=== PATIENT | female | born 1965 | race Caucasian/White ===

== ENCOUNTER 2017-09-20 05:22 | Emergency (ER) | payer OTHER ==
[~2017-09-20] VITALS: Ht 167.6 cm; Wt 122.7 kg
[~2017-09-20 05:22] MED LIST: CLIN1CAP5 PO; FIORINAL2 PO; OXYC1TAB13 PO; SMZ-800T
[2017-09-20 05:28] VITALS: BP 174/101; PULSE 82; RESP 20; TEMP 98; O2SAT 98
[2017-09-20 05:39] VITALS: BP 174/101; PULSE 82; RESP 18; TEMP 98
--- NOTE | 2017-09-20 05:41 | PD ---
HPI Chief Complaint: facial swelling Time Seen by Provider: 05:40 Travel History International Travel<30 days: No Contact w/Intl Traveler<30days: No Traveled to known affect area: No History of Present Illness HPI 52-year-old female came to the emergency room with history of intense nasal and adjacent left cheek swelling and pain. Patient says that this has been going on for 3 days. She called [facility] and was prescribed Bactrim, Bactroban ointment for the nose and Medrol Dosepak. However patient says last night she was unable to sleep because of the pain. As per her is started off as a small sore inside her left nostril. Now her entire nose especially the left nostril is very tender to touch and the side of the nose and the left cheek is swollen. No history of fever or chills. Vital signs were relatively stable. [facility] Past Medical History Narrative Medical List of her past medical, surgical, social and family history is reviewed from the nursing note. Cancer: No Diabetes: No Glaucoma: No Hepatitis: No Hiatal Hernia: No Hypertension: No Thyroid Disease: Yes Past Surgical History Gynecologic Surgery: Yes (TUBAL LIGATION) Hysterectomy: Yes Other Surgery: Yes Social History Alcohol Use: Yes (RARE) Tobacco Use: No Substance Use: No Allergies-Medications (Allergen,Severity, Reaction): Coded Allergies: No Known Allergies (Verified Allergy, Unknown, 09/20/17) Comments No known drug allergies. Reported Meds & Prescriptions Reported Meds & Active Scripts Active Ibuprofen 800 Mg Tab 800 Mg PO Q6HR PRN Tramadol (Tramadol HCl) 50 Mg Tab 50 Mg PO Q6H PRN Clindamycin (Clindamycin HCl) 300 Mg Cap 300 Mg PO Q8HR 10 Days Reported Topamax (Topiramate) 100 Mg Tab 100 Mg PO HS Phentermine (Phentermine HCl) 37.5 Mg Cap 37.5 Mg PO DAILY Levothyroxine (Levothyroxine Sodium) 100 Mcg Tab 100 Mcg PO DAILY Fiorinal (Butalbital/Aspirin/Caffeine) 50-325-40 Mg Cap 1 Cap PO Q6HR PRN Do not exceed 6 capsules/day. Mupirocin Topical (Mupirocin) 2 % Oint 1 Applic TOPICAL BID Methylprednisolone Dosepak (Methylprednisolone) 4 Dspk 4 Mg PO DIRECTED Per Pharmacist Direction Sulfamethoxazole-Trimethoprim 800-160 Mg Tab 1 Tab PO BID Narrative Medication List of her home medications reviewed from the nursing note. Review of Systems Except as stated in HPI: all other systems reviewed are Neg HENT: Positive: Other (facial swelling and pain) Physical Exam Narrative GENERAL: Awake, alert, obese, moderate distress SKIN: Focused skin assessment warm/dry. HEAD: Atraumatic. Normocephalic. EYES: Pupils equal and round. No scleral icterus. No injection or drainage. ENT: No nasal bleeding or discharge. Mucous membranes pink and moist. The tip of the nose is tender to touch along with the lateral and lateral of the left nostril. There is some redness and swelling as well NECK: Trachea midline. No JVD. CARDIOVASCULAR: Regular rate and rhythm. No murmur appreciated. RESPIRATORY: No accessory muscle use. Clear to auscultation. Breath sounds equal bilaterally. GASTROINTESTINAL: Abdomen soft, non-tender, nondistended. Hepatic and splenic margins not palpable. MUSCULOSKELETAL: No obvious deformities. No clubbing. No cyanosis. No edema. NEUROLOGICAL: Awake and alert. No obvious cranial nerve deficits. Motor grossly within normal limits. Normal speech. PSYCHIATRIC: Appropriate mood and affect; insight and judgment normal. Data Data Last Documented VS Orders Orders Basic Metabolic Panel (Bmp) (09/20/17 05:47) Complete Blood Count With Diff (09/20/17 05:47) Blood Culture (09/20/17 05:47) Wound Culture And Gram Stain (09/20/17 05:47) Ketorolac Inj (Toradol Inj) (09/20/17 06:00) Ct Facial Bones W Iv Contrast (09/20/17 ) Clindamycin Inj (Cleocin Inj) (09/20/17 06:15) Iohexol 350 Inj (Omnipaque 350 Inj) (09/20/17 07:13) Ed Discharge Order (09/20/17 08:45) Labs Laboratory Tests Test 09/20/17 06:00 White Blood Count 8.2 TH/MM3 Red Blood Count 4.21 MIL/MM3 Hemoglobin 13.5 GM/DL Hematocrit 41.0 % Mean Corpuscular Volume 97.4 FL Mean Corpuscular Hemoglobin 32.0 PG Mean Corpuscular Hemoglobin Concent 32.9 % Red Cell Distribution Width 13.4 % Platelet Count 310 TH/MM3 Mean Platelet Volume 8.5 FL Neutrophils (%) (Auto) 73.3 % Lymphocytes (%) (Auto) 18.9 % Monocytes (%) (Auto) 4.9 % Eosinophils (%) (Auto) 2.1 % Basophils (%) (Auto) 0.8 % Neutrophils # (Auto) 5.9 TH/MM3 Lymphocytes # (Auto) 1.6 TH/MM3 Monocytes # (Auto) 0.4 TH/MM3 Eosinophils # (Auto) 0.2 TH/MM3 Basophils # (Auto) 0.1 TH/MM3 CBC Comment DIFF FINAL Differential Comment Blood Urea Nitrogen 11 MG/DL Creatinine 1.10 MG/DL Random Glucose 102 MG/DL Calcium Level 8.5 MG/DL Sodium Level 138 MEQ/L Potassium Level 3.8 MEQ/L Chloride Level 107 MEQ/L Carbon Dioxide Level 21.5 MEQ/L Anion Gap 10 MEQ/L Estimat Glomerular Filtration Rate 52 ML/MIN MDM Medical Decision Making Medical Screen Exam Complete: Yes Emergency Medical Condition: Yes Medical Record Reviewed: Yes Differential Diagnosis Nasal cellulitis, abscess, Narrative Course 6:20 AM awaiting for the blood test result. Patient is medicated for pain and IV clindamycin has been ordered. I've ordered CT scan of her face with contrast. Awaiting for the scan to be done and resulted. 6:43 AM blood test results of back and within acceptable limit. Awaiting for the CAT scan to be done and resulted. Case will be signed out to the oncoming ER physician. Procedures EKG Prior to Arrival: No Scripts Clindamycin (Clindamycin) 300 Mg Cap 300 MG PO Q8HR for Infection for 10 Days, CAP 0 Refills Prov: Gaviota Bermeo MD 09/20/17 Chanel Church MD Sep 20, 2017 05:41
[2017-09-20] MEDS ORDERED: SULF1TAB23 PO (05:50)
[2017-09-20] MEDS ORDERED: FIORINAL2 PO (05:50)
[2017-09-20] MEDS ORDERED: MUPI2OIN TOPICAL (05:50)
[2017-09-20] MEDS ORDERED: METH4PAK PO (05:50)
[2017-09-20] MEDS ORDERED: KETOROLAC TROMETHAMINE 30 MG/ML (IVP) VIAL IVP ONE (06:00)
[2017-09-20] MEDS ORDERED: CLINDAMYCIN INJ 600 MG in SODIUM CHLORIDE 0.9% INJ 100 ML IV ONE (06:00)
[2017-09-20] MEDS ORDERED: CLINDAMYCIN INJ 600 MG in SODIUM CHLORIDE 0.9% INJ 50 ML IV ONE (06:00)
[2017-09-20] MEDS ORDERED: CLINDAMYCIN INJ 600 MG in SODIUM CHLORIDE 0.9% INJ 46 ML IV ONE (06:15)
[2017-09-20 06:18] VITALS: BP 142/85; PULSE 70; RESP 18; O2SAT 97
[2017-09-20 06:19] LABS: AUTOMATED NEUTROPHIL # 5.9 TH/MM3 (1.8-7.7); BASOPHIL # 0.1 TH/MM3 (0-0.2); BASOPHIL % 0.8 % (0.0-2.0); EOSINOPHIL # 0.2 TH/MM3 (0-0.4); EOSINOPHIL % 2.1 % (0.0-4.0); HEMO FLAGS DIFF FINAL; LYMPH % 18.9 % (9.0-44.0); LYMPHOCYTE # 1.6 TH/MM3 (1.0-4.8); MEAN CELL VOLUME 97.4 FL (80.0-100.0); MEAN CORPUSCULAR HGB CONC 32.9 % (32.0-36.0); MONO % 4.9 % (0.0-8.0); NEUT % 73.3 % (16.0-70.0); PLATELET COUNT 310 TH/MM3 (150-450); RED BLOOD COUNT 4.21 MIL/MM3 (4.00-5.30); RED CELL DISTRIBUTION WIDTH 13.4 % (11.6-17.2); WHITE BLOOD COUNT 8.2 TH/MM3 (4.0-11.0)
[2017-09-20 06:35] LABS: POTASSIUM 3.8 MEQ/L (3.5-5.1)
[2017-09-20 06:38] LABS: BICARBONATE 21.5 MEQ/L (21.0-32.0)
[2017-09-20] MEDS ORDERED: IOHEXOL 350 MG/ML 10 ML VIAL (for RAD DIAG) IVCONTRAST ONE (07:13)
--- NOTE | 2017-09-20 07:19 | RADRPT ---
EXAM DATE/TIME: 09/20/2017 06:55 [facility] COMPARISON: No previous studies available for comparison. INDICATIONS : Nasal swelling. Left facial pain. IV CONTRAST: 100 cc Omnipaque 350 (iohexol) IV RADIATION DOSE: 27.31 CTDIvol (mGy) ; Patient motion MEDICAL HISTORY : None SURGICAL HISTORY : Tubal ligation. ENCOUNTER: Initial ACUITY: 2 days PAIN SCALE: 8/10 LOCATION: Left facial TECHNIQUE: Volumetric scanning of the facial bones was performed. Using automated exposure control and adjustme nt of the mA and/or kV according to patient size, radiation dose was kept as low as reasonably achiev able to obtain optimal diagnostic quality images. DICOM format image data is available electronicall y for review and comparison. FINDINGS: ORBITS: The orbital and infraorbital osseous structures are intact. The retroconal structures have a normal configuration. No radiopaque foreign bodies are seen. NASAL BONE: The nasal bone and maxillary spine are intact ZYGOMATIC ARCHES: Symmetric without evidence of fracture. SINUSES: The maxillary, ethmoid and frontal sinuses are intact. No air-fluid levels seen. NASAL CAVITY: Mild nasal septal deviation to the right. The middle and inferior turbinates are within normal limits . SOFT TISSUES: No radiopaque foreign bodies seen. No soft-tissue swelling is seen. INTRACRANIAL: No intracranial air seen. CRIBIFORM PLATE: Grossly intact. CONCLUSION: Unremarkable examination. Delvin Rangel MD on September 20, 2017 at 7:15 Board Certified Radiologist. This report was verified electronically.
[2017-09-20] MEDS ORDERED: CLIN300C5 PO (08:45)
--- NOTE | 2017-09-20 08:45 | PD ---
Physical Exam Narrative GENERAL: Well-nourished, well-developed patient. SKIN: Warm and dry. There is redness noted to the left nare HEAD: Normocephalic and atraumatic. EYES: No injection or drainage. ENT: No nasal drainage noted. No abscess noted NECK: Supple, trachea midline. CARDIOVASCULAR: Regular rate and rhythm RESPIRATORY: No increased effort. No accessory muscle use. NEUROLOGICAL: Awake and alert. Motor and sensory grossly within normal limits. Normal speech. Data Data Last Documented VS Vital Signs Date Time Temp Pulse Resp B/P (MAP) Pulse Ox O2 Delivery O2 Flow Rate FiO2 09/20/17 09:03 83 18 135/79 (97) 100 09/20/17 06:18 Room Air 09/20/17 05:39 98.0 Orders Orders Basic Metabolic Panel (Bmp) (09/20/17 05:47) Complete Blood Count With Diff (09/20/17 05:47) Blood Culture (09/20/17 05:47) Wound Culture And Gram Stain (09/20/17 05:47) Ketorolac Inj (Toradol Inj) (09/20/17 06:00) Ct Facial Bones W Iv Contrast (09/20/17 ) Clindamycin Inj (Cleocin Inj) (09/20/17 06:15) Iohexol 350 Inj (Omnipaque 350 Inj) (09/20/17 07:13) Ed Discharge Order (09/20/17 08:45) Labs Laboratory Tests Test 09/20/17 06:00 White Blood Count 8.2 TH/MM3 Red Blood Count 4.21 MIL/MM3 Hemoglobin 13.5 GM/DL Hematocrit 41.0 % Mean Corpuscular Volume 97.4 FL Mean Corpuscular Hemoglobin 32.0 PG Mean Corpuscular Hemoglobin Concent 32.9 % Red Cell Distribution Width 13.4 % Platelet Count 310 TH/MM3 Mean Platelet Volume 8.5 FL Neutrophils (%) (Auto) 73.3 % Lymphocytes (%) (Auto) 18.9 % Monocytes (%) (Auto) 4.9 % Eosinophils (%) (Auto) 2.1 % Basophils (%) (Auto) 0.8 % Neutrophils # (Auto) 5.9 TH/MM3 Lymphocytes # (Auto) 1.6 TH/MM3 Monocytes # (Auto) 0.4 TH/MM3 Eosinophils # (Auto) 0.2 TH/MM3 Basophils # (Auto) 0.1 TH/MM3 CBC Comment DIFF FINAL Differential Comment Blood Urea Nitrogen 11 MG/DL Creatinine 1.10 MG/DL Random Glucose 102 MG/DL Calcium Level 8.5 MG/DL Sodium Level 138 MEQ/L Potassium Level 3.8 MEQ/L Chloride Level 107 MEQ/L Carbon Dioxide Level 21.5 MEQ/L Anion Gap 10 MEQ/L Estimat Glomerular Filtration Rate 52 ML/MIN MDM Supervised Visit with TAMIKO: No Interpretation(s) Last [address] 09/20/17 0000 Signed Impressions: Service Date/Time: Wednesday, September 20, 2017 06:55 - CONCLUSION: Unremarkable examination. Delvin Rangel MD Narrative Course Signed over to me to follow CT and reevaluate. Lab work is within normal limits , vital signs are stable. CT without progression of disease. Offered patient observation in the hospital with IV antibiotics and monitoring of her symptoms that she is wanting to go home and therefore we will provide her with antibiotic prescription for clindamycin and have her follow with her primary doctor tomorrow for recheck. Given strict return precautions and understands the importance of them given the area of cellulitis on her face. I explained with her how it could spread to her brain or one of the blood vessels in her brain could clot from this and she understands why this is important. Diagnosis Primary Impression: Nose cellulitis Patient Instructions: General Instructions Additional Instruction: Return with any headache, fever, vomiting, increased redness or other concern, continue Bactrim, follow with primary tomorrow Med/Other Pt SpecificInfo: Prescription(s) given Scripts Clindamycin (Clindamycin) 300 Mg Cap 300 MG PO Q8HR for Infection for 10 Days, CAP 0 Refills Prov: Gaviota Bermeo MD 09/20/17 Disposition: 01 DISCHARGE HOME Condition: Stable Gaviota Bermeo MD Sep 20, 2017 08:45
[2017-09-20 09:03] VITALS: BP 135/79
[2017-09-20] MEDS ORDERED: PHEN37.54 PO (21:00)
[2017-09-20] MEDS ORDERED: TOPI100 PO (21:00)
[2017-09-20] MEDS ORDERED: LEVO100T5 PO (21:00)
[2017-09-21] MEDS ORDERED: TRAM50TA PO (00:14)
[2017-09-21] MEDS ORDERED: IBUP1TAB7 PO (00:14)
== END 2017-09-20 09:05 | disposition home or self-care (01) ==
LOC: PHED 05:22
DX: J34.0 Abscess, furuncle and carbuncle of nose (principal); B96.7 Clostridium perfringens [C. perfringens] as the cause of diseases classified elsewhere
CPT/HCPCS: 70487; 80048; 85025; 87040; 87070; 87185; 96365; 96375; 99285; J1885; Q9967; 87205

== ENCOUNTER 2017-09-20 20:32 | Emergency (ER) | payer OTHER ==
[~2017-09-20] VITALS: Ht 167.6 cm; Wt 124.1 kg
[~2017-09-20 20:32] MED LIST changes: +CLIN300C5 PO; +METH4PAK PO; +MUPI2OIN TOPICAL; +SULF1TAB23 PO
[2017-09-20 20:34] VITALS: BP 163/94; PULSE 82; RESP 18; TEMP 98.1; O2SAT 97
[2017-09-20] MEDS ORDERED: TOPI100 PO (21:00)
[2017-09-20] MEDS ORDERED: PHEN37.54 PO (21:00)
[2017-09-20] MEDS ORDERED: LEVO100T5 PO (21:00)
--- NOTE | 2017-09-20 21:25 | PD ---
HPI Chief Complaint: ENT Complaint Time Seen by Provider: 20:54 Travel History International Travel<30 days: No Contact w/Intl Traveler<30days: No Traveled to known affect area: No History of Present Illness HPI Patient is a 52-year-old female who was in the ER earlier today seen by Dr. Smith for a possible infection in her nose that could be spreading towards facial cellulitis. Patient went to a urgent care was put on Bactrim and prednisone it did not improve so she came to our ER this morning. She does not have diabetes high blood pressure. She has no visual changes. She says she noticed a small ulcer on the left Mejia and shortness on the lateral aspect. In the ER today patient had a CAT scan that did not show any significant facial cellulitis there was mild inflammation of the left nare. PFSH Past Medical History Cancer: No Diabetes: No Diminished Hearing: No Glaucoma: No Hepatitis: No Hiatal Hernia: No Hypertension: No Immunizations Current: No Thyroid Disease: Yes Tetanus Vaccination: Unknown Influenza Vaccination: No ?: Not Menopausal: Yes : 2 Para: 2 Past Surgical History Eye Surgery: Yes (STAPES IMPLANT-TITANIUM) Gynecologic Surgery: Yes (TUBAL LIGATION) Hysterectomy: Yes Other Surgery: Yes Social History Alcohol Use: Yes (RARE) Tobacco Use: No Substance Use: No Allergies-Medications (Allergen,Severity, Reaction): Coded Allergies: No Known Allergies (Verified Allergy, Unknown, 09/20/17) Reported Meds & Prescriptions Reported Meds & Active Scripts Active Ibuprofen 800 Mg Tab 800 Mg PO Q6HR PRN Tramadol (Tramadol HCl) 50 Mg Tab 50 Mg PO Q6H PRN Clindamycin (Clindamycin HCl) 300 Mg Cap 300 Mg PO Q8HR 10 Days Reported Topamax (Topiramate) 100 Mg Tab 100 Mg PO HS Phentermine (Phentermine HCl) 37.5 Mg Cap 37.5 Mg PO DAILY Levothyroxine (Levothyroxine Sodium) 100 Mcg Tab 100 Mcg PO DAILY Fiorinal (Butalbital/Aspirin/Caffeine) 50-325-40 Mg Cap 1 Cap PO Q6HR PRN Do not exceed 6 capsules/day. Mupirocin Topical (Mupirocin) 2 % Oint 1 Applic TOPICAL BID Methylprednisolone Dosepak (Methylprednisolone) 4 Dspk 4 Mg PO DIRECTED Per Pharmacist Direction Sulfamethoxazole-Trimethoprim 800-160 Mg Tab 1 Tab PO BID Review of Systems Except as stated in HPI: all other systems reviewed are Neg HENT: Positive: Other (and in her left neck area lateral aspect of the introitus of her left naris as well as some what going up the side of her nasal fold) Physical Exam Narrative GENERAL: Nontoxic-appearing afebrile awake alert SKIN: Warm and dry. HEAD: Atraumatic. Normocephalic. Face has no periorbital cellulitis no redness around her orbits. EYES: Pupils equal and round. No scleral icterus. No injection or drainage. Full range of motion bilaterally ENT: No nasal bleeding or discharge. Mucous membranes pink and moist. Inside her left naris there is a small tiny erosion on the lateral aspect of the introitus of the left nostril 3 mm NECK: Trachea midline. No JVD. CARDIOVASCULAR: Regular rate and rhythm. RESPIRATORY: No accessory muscle use. Clear to auscultation. Breath sounds equal bilaterally. GASTROINTESTINAL: Abdomen soft, non-tender, nondistended. Hepatic and splenic margins not palpable. MUSCULOSKELETAL: Extremities without clubbing, cyanosis, or edema. No obvious deformities. NEUROLOGICAL: Awake and alert. No obvious cranial nerve deficits. Motor grossly within normal limits. Five out of 5 muscle strength in the arms and legs. Normal speech. PSYCHIATRIC: Appropriate mood and affect; insight and judgment normal. Data Data Last Documented VS Vital Signs Date Time Temp Pulse Resp B/P (MAP) Pulse Ox O2 Delivery O2 Flow Rate FiO2 09/21/17 01:05 65 20 132/77 (95) 98 09/20/17 20:34 98.1 Orders Orders Complete Blood Count With Diff (09/20/17 21:22) Clindamycin 300 Mg Premix (Cleocin 300 M (09/20/17 21:30) Ketorolac Inj (Toradol Inj) (09/20/17 22:15) Ed Discharge Order (09/21/17 00:36) Labs Laboratory Tests Test 09/20/17 21:40 White Blood Count 7.6 TH/MM3 Red Blood Count 3.96 MIL/MM3 Hemoglobin 13.1 GM/DL Hematocrit 39.4 % Mean Corpuscular Volume 99.6 FL Mean Corpuscular Hemoglobin 33.1 PG Mean Corpuscular Hemoglobin Concent 33.3 % Red Cell Distribution Width 14.1 % Platelet Count 312 TH/MM3 Mean Platelet Volume 8.6 FL Neutrophils (%) (Auto) 72.7 % Lymphocytes (%) (Auto) 15.4 % Monocytes (%) (Auto) 6.5 % Eosinophils (%) (Auto) 3.8 % Basophils (%) (Auto) 1.6 % Neutrophils # (Auto) 5.5 TH/MM3 Lymphocytes # (Auto) 1.2 TH/MM3 Monocytes # (Auto) 0.5 TH/MM3 Eosinophils # (Auto) 0.3 TH/MM3 Basophils # (Auto) 0.1 TH/MM3 CBC Comment DIFF FINAL Differential Comment MDM Medical Decision Making Medical Screen Exam Complete: Yes Emergency Medical Condition: Yes Medical Record Reviewed: Yes Differential Diagnosis nose infection vs tear duct infection vs early periorbital cellulitis Narrative Course I reviewed patient's earlier CAT scan from today as well as her white count I repeated the white count it is decreased there is no left shift is no sign of acute active bacterial infection. She received 600 clindamycin IV today in the ER and went home and has taken 300 mg 2 every 6. She returns I give her another IV dose of clindamycin repeat CAT scan repeat the CBC which has gone down no signs of acute infection or risk of cellular orbital cellulitis she is to be discharged follow with ENT and continue her clindamycin Diagnosis Primary Impression: Infection of nose Referrals: Jovanny Monson MD Additional Instructions: Take the clindamycin every 8 hours for the next 10 days. Watch for any redness around the orbit and the eye. Follow-up with Dr. Ermias Petty of ENT. Return to the ER if there is any redness surrounding the Scripts Ibuprofen (Ibuprofen) 800 Mg Tab 800 MG PO Q6HR Y for PAIN, #40 TAB 0 Refills Prov: Zackery Eldridge MD 09/21/17 Tramadol (Tramadol) 50 Mg Tab 50 MG PO Q6H Y for PAIN, #10 TAB 0 Refills Prov: Zackery Eldridge MD 09/21/17 Disposition: 01 DISCHARGE HOME Condition: Good Zackery Eldridge MD Sep 20, 2017 21:25
[2017-09-20 21:28] VITALS: BP 166/90; PULSE 70; RESP 20; O2SAT 94
[2017-09-20] MEDS ORDERED: CLINDAMYCIN INJ 300 MG in SODIUM CHLORIDE 0.9% INJ 50 ML IV ONE (21:30)
[2017-09-20] MEDS ORDERED: CLINDAMYCIN 300 MG PREMIX 50 ML IV ONE (21:30)
[2017-09-20 21:48] LABS: AUTOMATED NEUTROPHIL # 5.5 TH/MM3 (1.8-7.7); BASOPHIL # 0.1 TH/MM3 (0-0.2); BASOPHIL % 1.6 % (0.0-2.0); EOSINOPHIL # 0.3 TH/MM3 (0-0.4); EOSINOPHIL % 3.8 % (0.0-4.0); HEMATOCRIT 39.4 % (35.0-46.0); HEMO FLAGS DIFF FINAL; LYMPH % 15.4 % (9.0-44.0); LYMPHOCYTE # 1.2 TH/MM3 (1.0-4.8); MEAN CELL VOLUME 99.6 FL (80.0-100.0); MEAN CORPUSCULAR HEMOGLOBIN 33.1 PG (27.0-34.0); MEAN CORPUSCULAR HGB CONC 33.3 % (32.0-36.0); MONO % 6.5 % (0.0-8.0); NEUT % 72.7 % (16.0-70.0); PLATELET COUNT 312 TH/MM3 (150-450); RED BLOOD COUNT 3.96 MIL/MM3 (4.00-5.30); RED CELL DISTRIBUTION WIDTH 14.1 % (11.6-17.2); WHITE BLOOD COUNT 7.6 TH/MM3 (4.0-11.0)
[2017-09-20] MEDS ORDERED: KETOROLAC TROMETHAMINE 30 MG/ML (IVP) VIAL IV PUSH ONE (22:15)
[2017-09-20 23:27] VITALS: BP 139/77; PULSE 65; RESP 20; O2SAT 95
[2017-09-20 23:38] VITALS: RESP 20
[2017-09-21] MEDS ORDERED: IBUP1TAB7 PO (00:14)
[2017-09-21] MEDS ORDERED: TRAM50TA PO (00:14)
[2017-09-21 01:05] VITALS: BP 132/77
== END 2017-09-21 01:09 | disposition home or self-care (01) ==
LOC: PHED 20:32
DX: L08.9 Local infection of the skin and subcutaneous tissue, unspecified (principal)
CPT/HCPCS: 85025; 96365; 96375; 99284; J1885

== ENCOUNTER 2017-10-29 02:05 | Emergency (ER) | payer OTHER ==
[~2017-10-29] VITALS: Ht 167.6 cm; Wt 124.1 kg
[~2017-10-29 02:05] MED LIST changes: -CLIN1CAP5 PO; +IBUP1TAB7 PO; +LEVO100T5 PO; -OXYC1TAB13 PO; +PHEN37.54 PO; -SMZ-800T; +TOPI100 PO; +TRAM50TA PO
[2017-10-29 02:13] VITALS: BP 150/80; PULSE 73; RESP 18; TEMP 97.2; O2SAT 99
[2017-10-29 02:48] VITALS: BP 150/80; PULSE 73; RESP 16; TEMP 97.2; O2SAT 99
[2017-10-29] MEDS ORDERED: SODIUM CHLOR 0.9% 1000 ML INJ 1,000 ML IV ONE (04:00)
[2017-10-29] MEDS ORDERED: KETOROLAC TROMETHAMINE 30 MG/ML (IVP) VIAL IVP ONE (04:00)
[2017-10-29] MEDS ORDERED: SODIUM CHLORIDE 0.9% FLUSH 10 ML FLUSH IVF PRN (04:00)
[2017-10-29] MEDS ORDERED: ONDANSETRON HCL 4 MG/2 ML VIAL IVP ONE (04:00)
[2017-10-29 04:41] LABS: AUTOMATED NEUTROPHIL # 3.8 TH/MM3 (1.8-7.7); BASOPHIL % 0.8 % (0.0-2.0); EOSINOPHIL # 0.1 TH/MM3 (0-0.4); EOSINOPHIL % 1.7 % (0.0-4.0); HEMATOCRIT 36.6 % (35.0-46.0); HEMOGLOBIN 12.3 GM/DL (11.6-15.3); LYMPH % 27.4 % (9.0-44.0); LYMPHOCYTE # 1.6 TH/MM3 (1.0-4.8); MEAN CELL VOLUME 98.5 FL (80.0-100.0); MEAN CORPUSCULAR HEMOGLOBIN 33.2 PG (27.0-34.0); MEAN CORPUSCULAR HGB CONC 33.7 % (32.0-36.0); MEAN PLATELET VOLUME 7.8 FL (7.0-11.0); MONO % 5.6 % (0.0-8.0); MONOCYTE # 0.3 TH/MM3 (0-0.9); NEUT % 64.5 % (16.0-70.0); PLATELET COUNT 309 TH/MM3 (150-450); RED BLOOD COUNT 3.71 MIL/MM3 (4.00-5.30); RED CELL DISTRIBUTION WIDTH 13.2 % (11.6-17.2); WHITE BLOOD COUNT 5.9 TH/MM3 (4.0-11.0)
[2017-10-29 04:50] LABS: CALCIUM 8.5 MG/DL (8.5-10.1)
[2017-10-29 04:51] LABS: BICARBONATE 26.5 MEQ/L (21.0-32.0)
[2017-10-29 04:54] LABS: CREATININE 0.7 MG/DL (0.50-1.00)
--- NOTE | 2017-10-29 04:59 | PD ---
HPI Chief Complaint: Headache Time Seen by Provider: 02:14 Travel History International Travel<30 days: No Contact w/Intl Traveler<30days: No Traveled to known affect area: No History of Present Illness HPI 52-year-old female presents to the emergency department for complaint of recurrent migraine and associated with vomiting. Patient states she typically does not come to the emergency department for migraine management. Patient states she was recently treated with oral antibiotic clindamycin and Bactrim for nasal infection after presenting to the emergency department for complaint of possible sinus infection. Patient patient reports that she was treated for a flesh eating bacteria. Patient is not Diabetic. Patient presents at this time stating she has no facial pain and no nasal pain. Patient states that she' s had no nasal drainage or sinus pressure. Patient denies fever or chills. Patient denies neck stiffness. Patient has had vomiting which is atypical for her. Patient has family history of migraines. Patient is treated for her migraines with topiramate and Fioricet. Patient rates headache pain 8/10 in intensity. No hematemesis no coffee-ground emesis no melena hematochezia. PFSH Past Medical History Narrative Medical Migraine hypothyroidism ulcerative colitis; occasional alcohol use cervical nursing notes reviewed Cancer: No Diabetes: No Diminished Hearing: No Glaucoma: No Headaches: Yes Hepatitis: No Hiatal Hernia: No Hypertension: No Medical other: Yes (ULCERATIVE COLITIES) Immunizations Current: No Migraines: Yes Thyroid Disease: Yes Tetanus Vaccination: > 5 Years Influenza Vaccination: No ?: Not Menopausal: Yes : 2 Para: 2 Past Surgical History Eye Surgery: Yes (STAPES IMPLANT-TITANIUM) Gynecologic Surgery: Yes (TUBAL LIGATION) Hysterectomy: Yes Other Surgery: Yes Social History Alcohol Use: Yes (RARE) Tobacco Use: No Substance Use: No Allergies-Medications (Allergen,Severity, Reaction): Coded Allergies: No Known Allergies (Verified Allergy, Unknown, 10/29/17) Reported Meds & Prescriptions Reported Meds & Active Scripts Active Ibuprofen 800 Mg Tab 800 Mg PO Q6HR PRN Tramadol (Tramadol HCl) 50 Mg Tab 50 Mg PO Q6H PRN Reported Topamax (Topiramate) 100 Mg Tab 100 Mg PO HS Levothyroxine (Levothyroxine Sodium) 100 Mcg Tab 100 Mcg PO DAILY Fiorinal (Butalbital/Aspirin/Caffeine) 50-325-40 Mg Cap 1 Cap PO Q6HR PRN Do not exceed 6 capsules/day. Mupirocin Topical (Mupirocin) 2 % Oint 1 Applic TOPICAL BID Review of Systems Except as stated in HPI: all other systems reviewed are Neg Physical Exam Narrative GENERAL: Well-developed well-nourished female in no acute distress no respiratory distress resting in the dark SKIN: Warm and dry. HEAD: Atraumatic. Normocephalic. EYES: Pupils equal and round. No scleral icterus. No injection or drainage. No papilledema by funduscopic exam ENT: No nasal bleeding or discharge. Mucous membranes pink and moist. NECK: Trachea midline. No JVD. No meningismus no nuchal rigidity. CARDIOVASCULAR: Regular rate and rhythm. RESPIRATORY: No accessory muscle use. Clear to auscultation. Breath sounds equal bilaterally. GASTROINTESTINAL: Abdomen soft, non-tender, nondistended. Hepatic and splenic margins not palpable. MUSCULOSKELETAL: Extremities without clubbing, cyanosis, or edema. No obvious deformities. NEUROLOGICAL: Awake and alert. No obvious cranial nerve deficits. Motor grossly within normal limits. Five out of 5 muscle strength in the arms and legs. No limb ataxia no pronator drift. Normal speech. PSYCHIATRIC: Appropriate mood and affect; insight and judgment normal. Data Data Last Documented VS Vital Signs Date Time Temp Pulse Resp B/P (MAP) Pulse Ox O2 Delivery O2 Flow Rate FiO2 10/29/17 02:57 Room Air 10/29/17 02:48 97.2 73 16 150/80 (103) 99 Orders Orders Complete Blood Count With Diff (10/29/17 04:00) Basic Metabolic Panel (Bmp) (10/29/17 04:00) Ct Brain W/O Iv Contrast(Rout) (10/29/17 04:00) Ecg Monitoring (10/29/17 04:00) Iv Access Insert/Monitor (10/29/17 04:00) Oximetry (10/29/17 04:00) Sodium Chloride 0.9% Flush (Ns Flush) (10/29/17 04:00) Ketorolac Inj (Toradol Inj) (10/29/17 04:00) Ondansetron Inj (Zofran Inj) (10/29/17 04:00) Sodium Chlor 0.9% 1000 Ml Inj (Ns 1000 M (10/29/17 04:00) Ct Facial Bones W/O Iv Cont (10/29/17 ) Labs Laboratory Tests Test 10/29/17 04:38 White Blood Count 5.9 TH/MM3 Red Blood Count 3.71 MIL/MM3 Hemoglobin 12.3 GM/DL Hematocrit 36.6 % Mean Corpuscular Volume 98.5 FL Mean Corpuscular Hemoglobin 33.2 PG Mean Corpuscular Hemoglobin Concent 33.7 % Red Cell Distribution Width 13.2 % Platelet Count 309 TH/MM3 Mean Platelet Volume 7.8 FL Neutrophils (%) (Auto) 64.5 % Lymphocytes (%) (Auto) 27.4 % Monocytes (%) (Auto) 5.6 % Eosinophils (%) (Auto) 1.7 % Basophils (%) (Auto) 0.8 % Neutrophils # (Auto) 3.8 TH/MM3 Lymphocytes # (Auto) 1.6 TH/MM3 Monocytes # (Auto) 0.3 TH/MM3 Eosinophils # (Auto) 0.1 TH/MM3 Basophils # (Auto) 0.0 TH/MM3 CBC Comment DIFF FINAL Differential Comment Blood Urea Nitrogen 14 MG/DL Creatinine 0.70 MG/DL Random Glucose 120 MG/DL Calcium Level 8.5 MG/DL Sodium Level 141 MEQ/L Potassium Level 3.7 MEQ/L Chloride Level 107 MEQ/L Carbon Dioxide Level 26.5 MEQ/L Anion Gap 8 MEQ/L Estimat Glomerular Filtration Rate 88 ML/MIN MDM Medical Decision Making Medical Screen Exam Complete: Yes Emergency Medical Condition: Yes Medical Record Reviewed: Yes Interpretation(s) CBC & BMP Diagram 10/29/17 04:38 Calcium Level 8.5 Vital Signs Date Time Temp Pulse Resp B/P (MAP) Pulse Ox O2 Delivery O2 Flow Rate FiO2 10/29/17 02:57 Room Air 10/29/17 02:48 97.2 73 16 150/80 (103) 99 10/29/17 02:13 97.2 73 18 150/80 (103) [address] 10/29/17 0400 Signed Impressions: Service Date/Time: Sunday, October 29, 2017 04:05 - CONCLUSION: Normal examination. Thong Oseguera MD Maxillofacial CT 10/29/17 0000 Signed Impressions: Service Date/Time: Sunday, October 29, 2017 04:05 - CONCLUSION: Normal examination. Thong Oseguera MD Differential Diagnosis Migraine, headache, electrolyte disturbance, dehydration, ICH, sinusitis; unlikely temporal arteritis, meningitis, encephalitis Narrative Course IV access obtained specimens collected and sent for resulting CT ordered Patient administered Toradol 30 mg IV and Zofran 4 mg IV and 1 L normal saline Lab values are in normal range CT brain noncontrast and facial bones supine no acute abnormality per reading radiologist Patient is clinically improved remains asymptomatic after Zofran and Toradol Patient is stable for outpatient management and follow-up with primary care provider; patient given prescription for Zofran to take as needed for nausea and /or vomiting. Diagnosis Primary Impression: Migraine headache Referrals: Primary Care Physician call for appointment Patient Instructions: General Instructions Additional Instructions: Increase fluid hydration Continue current medications as presently prescribed May use Zofran as prescribed as needed for nausea and/or vomiting May use acetaminophen/Tylenol or ibuprofen/Motrin/Advil for fever 100.4F or greater or for minor pain Return to the emergency department for any concerns or change in condition Med/Other Pt SpecificInfo: Prescription(s) given Scripts Ondansetron Odt (Zofran Odt) 4 Mg Tab 4 MG SL Q6HR Y for Nausea/Vomiting, #10 TAB 0 Refills Prov: Cinthya Lund MD 10/29/17 Disposition: 01 DISCHARGE HOME Condition: Stable Cinthya Lund MD Oct 29, 2017 04:59
--- NOTE | 2017-10-29 06:01 | RADRPT ---
EXAM DATE/TIME: 10/29/2017 04:05 [facility] COMPARISON: No previous studies available for comparison. INDICATIONS : Migraine headache not helped with meds. RADIATION DOSE: 63.03 CTDIvol (mGy) MEDICAL HISTORY : Hypothyroidism. SURGICAL HISTORY : Hysterectomy. Eye surgery ENCOUNTER: Initial ACUITY: 1 day PAIN SCALE: 8/10 LOCATION: cranial TECHNIQUE: Multiple contiguous axial images were obtained of the head. Using automated exposure control and adj ustment of the mA and/or kV according to patient size, radiation dose was kept as low as reasonably a chievable to obtain optimal diagnostic quality images. DICOM format image data is available electro nically for review and comparison. FINDINGS: CEREBRUM: The ventricles are normal for age. No evidence of midline shift, mass lesion, hemorrhage or acute in farction. No extra-axial fluid collections are seen. POSTERIOR FOSSA: The cerebellum and brainstem are intact. The 4th ventricle is midline. The cerebellopontine angle i s unremarkable. EXTRACRANIAL: The visualized portion of the orbits is intact. SKULL: The calvaria is intact. No evidence of skull fracture. CONCLUSION: Normal examination. Thong Oseguera MD on October 29, 2017 at 5:57 Board Certified Radiologist. This report was verified electronically.
--- NOTE | 2017-10-29 06:02 | RADRPT ---
EXAM DATE/TIME: 10/29/2017 04:05 [facility] COMPARISON: No previous studies available for comparison. INDICATIONS : Migraine headache not helped with meds RADIATION DOSE: 35.57 CTDIvol (mGy) MEDICAL HISTORY : Hypothyroidism. SURGICAL HISTORY : Hysterectomy. eye surgery ENCOUNTER: Initial ACUITY: 1 day PAIN SCORE: 8/10 LOCATION: facial TECHNIQUE: Volumetric scanning of the facial bones was performed. Using automated exposure control and adjustme nt of the mA and/or kV according to patient size, radiation dose was kept as low as reasonably achiev able to obtain optimal diagnostic quality images. DICOM format image data is available electronicall y for review and comparison. FINDINGS: ORBITS: The orbital and infraorbital osseous structures are intact. The retroconal structures have a normal configuration. No radiopaque foreign bodies are seen. NASAL BONE: The nasal bone and maxillary spine are intact ZYGOMATIC ARCHES: Symmetric without evidence of fracture. SINUSES: The maxillary, ethmoid and frontal sinuses are intact. No air-fluid levels seen. NASAL CAVITY: The nasal septum is intact and midline. The lacrimal ducts are intact. SOFT TISSUES: No radiopaque foreign bodies seen. No soft-tissue swelling is seen. INTRACRANIAL: No intracranial air seen. CRIBIFORM PLATE: Grossly intact. CONCLUSION: Normal examination. Thong Oseguera MD on October 29, 2017 at 5:58 Board Certified Radiologist. This report was verified electronically.
[2017-10-29] MEDS ORDERED: ZOFR4TAB3 SL (06:12)
[2017-10-29 06:15] VITALS: BP 144/75; PULSE 89; RESP 16; O2SAT 98
== END 2017-10-29 06:22 | disposition home or self-care (01) ==
LOC: PHED 02:05
DX: G43.909 Migraine, unspecified, not intractable, without status migrainosus (principal); R11.10 Vomiting, unspecified; E03.9 Hypothyroidism, unspecified; Z87.19 Personal history of other diseases of the digestive system; Z79.899 Other long term (current) drug therapy
CPT/HCPCS: 70450; 70486; 80048; 85025; 96361; 96374; 96375; 99285; J1885; J2405; J7030